=== PATIENT | male | born 1975 | race Hispanic/Latino ===

== ENCOUNTER 2016-12-20 12:33 | Emergency (ER) | payer BC ==
[~2016-12-20] VITALS: Ht 177.8 cm; Wt 70.3 kg
[2016-12-20 13:34] LABS: PLATELET COUNT 244 K/uL (142-355)
[2016-12-20 13:44] LABS: POTASSIUM 3.8 mmol/L (3.6-5.2); SODIUM 138 mmol/L (136-145)
[2016-12-20 15:55] VITALS: BP 110/60; TEMP 98.5
== END 2016-12-20 15:55 | disposition home or self-care (01) ==
LOC: ED 12:33
DX: R07.89 Other chest pain (principal); S29.011A Strain of muscle and tendon of front wall of thorax, initial encounter; F15.99 Other stimulant use, unspecified with unspecified stimulant-induced disorder
CPT/HCPCS: 36415; 80053; 80307; 81000; 85027; 93005; 96360; 96361; 96374; 99284; G0479; J1885